=== PATIENT | female | born 1965 | race Caucasian/White ===

== ENCOUNTER 2017-09-18 13:14 | Day surgery (SDC) | payer MEDICARE ==
[2017-09-18] MEDS ORDERED: DIPRIVAN 200 MG/20 ML IV ONE (13:15)
[2017-09-18] MEDS ORDERED: Marcaine 0.5% SDV 10 ML IJ ONE (13:15)
[2017-09-18] MEDS ORDERED: Xylocaine 1% Vial 30 ML PF IJ ONE (13:15)
[2017-09-18] MEDS ORDERED: Lactated Ringers 1,000 ML IV ONE (13:15)
--- NOTE | 2017-09-18 15:04 | OP ---
DATE OF PROCEDURE: 09/18/2017 1351 SURGEON: John Duff D.O. PREOPERATIVE DIAGNOSIS: Degenerative lumbar spine disease, spondylosis, low back pain. POSTOPERATIVE DIAGNOSIS: Degenerative lumbar spine disease, spondylosis, low back pain. PROCEDURE PERFORMED: Left L4-L3 medial branch block under fluoroscopic guidance. DESCRIPTION OF THE PROCEDURE: The patient was taken to the operating room and placed in the prone position on the table. Skin at the injection site was prepped and draped in sterile fashion. Under fluoroscopy, bony anatomy of the targeted injection site was visualized. Induction agent was given as per anesthesia while vital signs were monitored. Local anesthetic agent of 2 cc, 1% Lidocaine was introduced to anesthetize the skin and the subcutaneous tissue through the injection site. Under fluoroscopic guidance, a #20 gauge standard spinal needle was advanced into the target medial branch through the oblique approach. The preservative free 0.5 cc of 1% lidocaine and 0.5 cc of 0.25 - 0.5% Marcaine were injected into each of the targeted medial branch nerve. After the needle was being removed, the skin was cleansed with alcohol and then a bandage was applied. No complications or adverse consequences were observed. The patient was returned to the holding area until stabilized before discharge to home After the patient had been fully recovered from anesthesia, the patient states 100% pain reduction after the procedure. The patient will be followed up within ten days after the injection for re-evaluation.
--- NOTE | 2017-09-18 15:27 | XRAY ---
Indication: Left L3-L4 MBB. Intraoperative fluoroscopy was provided for 36 seconds. 3 digital spot images submitted for interpretation demonstrates posterior spinal needle tips projecting over the left L3 and L4 pedicles. Correlate with intraoperative findings/report.
--- NOTE | 2017-09-18 15:37 | XRAY ---
36 seconds fluoroscopy time in surgery for left L3-4 MBB.
== END 2017-09-18 14:45 | disposition home or self-care (01) ==
LOC: SDC-PAIN 13:14
PROVIDERS: ATTEND Internal Medicine
DX: M47.816 Spondylosis without myelopathy or radiculopathy, lumbar region (principal); M46.96 Unspecified inflammatory spondylopathy, lumbar region; M51.16 Intervertebral disc disorders with radiculopathy, lumbar region; M51.36 Other intervertebral disc degeneration, lumbar region
CPT/HCPCS: 64493; 72020; 77003; J2001; J2704

== ENCOUNTER 2017-10-30 08:55 | Day surgery (SDC) | payer MEDICARE ==
[2017-10-30] MEDS ORDERED: Xylocaine-Mpf 2% 5 Ml Vial IJ ONE (08:56)
[2017-10-30] MEDS ORDERED: Marcaine 0.5% SDV 10 ML IJ ONE (08:56)
[2017-10-30] MEDS ORDERED: Lactated Ringers 1,000 ML IV ONE (08:56)
--- NOTE | 2017-10-31 08:22 | OP ---
DATE OF PROCEDURE: 10/30/2017 1208 SURGEON: John Duff D.O. PREOPERATIVE DIAGNOSIS: Degenerative lumbar spine disease, spondylosis, low back pain. POSTOPERATIVE DIAGNOSIS: Degenerative lumbar spine disease, spondylosis, low back pain. PROCEDURE PERFORMED: Left L4-L3 medial branch block under fluoroscopic guidance. DESCRIPTION OF THE PROCEDURE: The patient was taken to the operating room and placed in the prone position on the table. Skin at the injection site was prepped and draped in sterile fashion. Under fluoroscopy, bony anatomy of the targeted injection site was visualized. Induction agent was given as per anesthesia while vital signs were monitored. Local anesthetic agent of 0.5 cc of 1% lidocaine preservative free was introduced to anesthetize the skin and the subcutaneous tissue through the injection site. Under fluoroscopic guidance, a #20 gauge standard spinal needle was advanced into the target medial branch through the oblique approach. The preservative free 0.5 cc of 1% lidocaine and 0.5 cc of 0.25% Marcaine were injected into each of the targeted medial branch nerve. After the needle was being removed, the skin was cleansed with alcohol and then a bandage was applied. No complications or adverse consequences were observed. The patient was returned to the holding area until stabilized before discharge to home. The self-reported preoperative pain is 8 out of 10 and postoperative pain level is 0 out of 10. The patient will be followed up within ten days after the injection for re-evaluation.
--- NOTE | 2017-11-01 08:18 | XRAY ---
19 seconds fluoroscopy time in surgery for left L3-4 MBB.
--- NOTE | 2017-11-01 08:18 | XRAY ---
Indication: Left L3-L4 MBB. Intraoperative fluoroscopy was provided for 19 seconds. 2 digital spot images submitted for interpretation demonstrates posterior spinal needle tips projecting over the left L3 and L4 pedicles. Correlate with intraoperative findings/report.
== END 2017-10-30 12:57 | disposition home or self-care (01) ==
LOC: SDC-PAIN 08:55
PROVIDERS: ATTEND Internal Medicine
DX: M46.96 Unspecified inflammatory spondylopathy, lumbar region (principal); M51.16 Intervertebral disc disorders with radiculopathy, lumbar region; M51.36 Other intervertebral disc degeneration, lumbar region; Z79.891 Long term (current) use of opiate analgesic
CPT/HCPCS: 64493; 64494; 72020; 77003

== ENCOUNTER 2017-12-04 10:01 | Day surgery (SDC) | payer MEDICARE ==
[2017-12-04] MEDS ORDERED: LIDOCAINE HCL 2% 100 MG/5 ML IJ ONE (10:02)
[2017-12-04] MEDS ORDERED: Lactated Ringers 1,000 ML IV ONE (10:02)
[2017-12-04] MEDS ORDERED: Marcaine 0.5% SDV 10 ML IJ ONE (10:02)
[2017-12-04] MEDS ORDERED: DIPRIVAN 200 MG/20 ML IV ONE (10:02)
[2017-12-04] MEDS ORDERED: Xylocaine-Mpf 2 ML IJ ONE (10:02)
--- NOTE | 2017-12-04 13:32 | XRAY ---
33 seconds fluoroscopy time in surgery for left RFA facet L4-L5.
--- NOTE | 2017-12-04 13:43 | XRAY ---
Indication: Left L4-L5 RFA. Intraoperative fluoroscopy was provided for 33 seconds. 2 digital spot images submitted for interpretation demonstrates 2 posterior spinal needle tips projecting over the left L3 and L4 pedicles. Correlate with intraoperative findings/report.
--- NOTE | 2017-12-05 08:59 | OP ---
DATE OF PROCEDURE: 12/04/2017 1217 SURGEON: John Duff D.O. PREOPERATIVE DIAGNOSES: Degenerative lumbosacral spine disease, spondylosis, low back pain. POSTOPERATIVE DIAGNOSES: Degenerative lumbosacral spine disease, spondylosis, low back pain. PROCEDURE PERFORMED: Left L3, L4 medial branch radiofrequency ablation under fluoroscopic guidance. DESCRIPTION OF PROCEDURE: The patient was taken to the operating room and laid in the prone position on the table. The skin over the injection site was prepped and draped in sterile fashion. Under fluoroscopy bony anatomy of the target injection site was visualized. Induction agent was given as per anesthesia while vital signs were monitored. Local anesthetic agent was introduced to anesthetize the skin and the subcutaneous tissue through the injection site. Under fluoroscopic guidance a standard size spinal needle with cannula was advanced into the target medial branch nerve as per standard protocol. Before the radiofrequency ablation motor and sensory nerve testing was conducted as per protocol. Under the safety guidance which ensured no motor nerves being involved, radiofrequency ablation was conducted at 80 degrees C for 90 seconds as per standard protocol. After the spinal needle with the cannula was removed the skin was cleansed with alcohol and then a bandage was applied. No complications or adverse occurrences were observed. After the procedure there was 100% pain reduction after the procedure. The patient will be followed up within 10 days after the procedure for reevaluation.
== END 2017-12-04 13:15 | disposition home or self-care (01) ==
LOC: SDC-PAIN 10:01
PROVIDERS: ATTEND Internal Medicine
DX: M54.5 Low back pain (principal); M46.96 Unspecified inflammatory spondylopathy, lumbar region; M51.16 Intervertebral disc disorders with radiculopathy, lumbar region; M51.36 Other intervertebral disc degeneration, lumbar region; Z79.891 Long term (current) use of opiate analgesic
CPT/HCPCS: 64635; 64636; 72020; 77003; J2704

== ENCOUNTER 2018-01-08 09:50 | Day surgery (SDC) | payer MEDICARE ==
[2018-01-08] MEDS ORDERED: Marcaine 0.5% SDV 10 ML IJ ONE (09:51)
[2018-01-08] MEDS ORDERED: Xylocaine 1% Vial 30 ML PF IJ ONE (09:51)
[2018-01-08] MEDS ORDERED: Lactated Ringers 1,000 ML IV ONE (12:04)
--- NOTE | 2018-01-08 13:24 | XRAY ---
Indication: Right L4-S1 MBB. Intraoperative fluoroscopy was provided for 34 seconds. 4 digital spot images submitted for interpretation demonstrates 3 posterior spinal needle tips projecting over the expected course of the right L4, L5, and S1 nerve roots. Correlate with intraoperative findings/report.
--- NOTE | 2018-01-08 13:37 | XRAY ---
34 seconds fluoroscopy time in surgery for right L5-S1 MBB.
--- NOTE | 2018-01-09 09:37 | OP ---
DATE OF PROCEDURE: 01/08/2018 1118 SURGEON: John Duff D.O. PREOPERATIVE DIAGNOSIS: Degenerative lumbar spine disease, spondylosis, low back pain. POSTOPERATIVE DIAGNOSIS: Degenerative lumbar spine disease, spondylosis, low back pain. PROCEDURE PERFORMED: Right L5, L4, L3 medial branch block under fluoroscopic guidance. DESCRIPTION OF THE PROCEDURE: The patient was taken to the operating room and placed in the prone position on the table. Skin at the injection site was prepped and draped in sterile fashion. Under fluoroscopy, bony anatomy of the targeted injection site was visualized.. This procedure was done under local anesthesia with 14 cc of 1% lidocaine used. Under fluoroscopic guidance, a #20 gauge standard spinal needle was advanced into the target medial branch through the oblique approach. The medication used for this procedure is preservative-free 0.5 cc of mixed half volume of 1% lidocaine plus half volume of 0.5% Marcaine to each injection site. After the needle was being removed, the skin was cleansed with alcohol and then a bandage was applied. No complications or adverse consequences were observed. The patient was returned to the holding area until stabilized before discharge to home. Preoperative pain level is 10 out of 10 and postoperative pain level is 0 out of 10. The patient will be followed up within ten days after the injection for re-evaluation.
== END 2018-01-08 11:50 | disposition home or self-care (01) ==
LOC: SDC-PAIN 09:50
PROVIDERS: ATTEND Internal Medicine
DX: M54.5 Low back pain (principal); M46.96 Unspecified inflammatory spondylopathy, lumbar region; M51.16 Intervertebral disc disorders with radiculopathy, lumbar region; M51.36 Other intervertebral disc degeneration, lumbar region; Z79.891 Long term (current) use of opiate analgesic
CPT/HCPCS: 64493; 64494; 64495; 72020; 77003; J2001

== ENCOUNTER 2019-02-11 11:50 | Day surgery (SDC) | payer MEDICARE ==
[2019-02-11] MEDS ORDERED: Depo-Medrol 40 MG/ML IM ONE (11:51)
[2019-02-11] MEDS ORDERED: Xylocaine-Mpf 2% 5 Ml Vial IJ ONE (11:51)
[2019-02-11] MEDS ORDERED: Ketamine HCl 50 MG/ML ONE (12:58)
[2019-02-11] MEDS ORDERED: DIPRIVAN 200 MG/20 ML IV ONE (12:58)
[2019-02-11] MEDS ORDERED: Lactated Ringers 1,000 ML IV ONE (13:28)
--- NOTE | 2019-02-11 14:44 | XRAY ---
Indication: Bilateral L4-S1 MBB. Intraoperative fluoroscopy was provided for 12 seconds. Single digital spot image submitted for interpretation demonstrates posterior needle tips projecting over the expected course of the left and right L4-S1 nerve roots. Correlate with intraoperative findings/report.
--- NOTE | 2019-02-11 14:46 | XRAY ---
12 seconds fluoroscopy time in surgery for bilateral L4-S1 MBB.
== END 2019-02-11 13:27 | disposition home or self-care (01) ==
LOC: SDC-PAIN 11:50
PROVIDERS: ATTEND Psychiatry & Neurology Pain Medicine
DX: M47.816 Spondylosis without myelopathy or radiculopathy, lumbar region (principal); I10 Essential (primary) hypertension; J44.9 Chronic obstructive pulmonary disease, unspecified; E78.00 Pure hypercholesterolemia, unspecified; F32.9 Major depressive disorder, single episode, unspecified
CPT/HCPCS: 64493; 64494; 72020; 77002; J1030; J2704

== ENCOUNTER 2019-04-15 11:54 | Day surgery (SDC) | payer MEDICARE ==
[2019-04-15] MEDS ORDERED: Marcaine 0.5% SDV 10 ML IJ ONE (11:55)
[2019-04-15] MEDS ORDERED: Depo-Medrol 40 MG/ML IM ONE (11:55)
[2019-04-15] MEDS ORDERED: DIPRIVAN 200 MG/20 ML IV ONE (12:46)
[2019-04-15] MEDS ORDERED: Ketamine HCl 50 MG/ML ONE (12:46)
[2019-04-15] MEDS ORDERED: Lactated Ringers 1,000 ML IV ONE (13:22)
--- NOTE | 2019-04-15 13:26 | XRAY ---
Indication: Bilateral L4-S1 MBB. Intraoperative fluoroscopy was provided for 9 seconds. Single digital spot image submitted for interpretation demonstrates posterior needle tips projecting over the expected course of the left and right L4-S1 nerve roots. Correlate with intraoperative findings/report.
--- NOTE | 2019-04-15 13:36 | XRAY ---
9 seconds of fluoroscopy was used in surgery bilateral L4-L5 and L5-S1 MBB.
== END 2019-04-15 13:23 | disposition home or self-care (01) ==
LOC: SDC-PAIN 11:54
PROVIDERS: ATTEND Psychiatry & Neurology Pain Medicine
DX: M47.816 Spondylosis without myelopathy or radiculopathy, lumbar region (principal); I10 Essential (primary) hypertension; J45.909 Unspecified asthma, uncomplicated; J44.9 Chronic obstructive pulmonary disease, unspecified; E78.00 Pure hypercholesterolemia, unspecified; Z79.899 Other long term (current) drug therapy
CPT/HCPCS: 64493; 64494; 72020; 77002; J1030; J2704

== ENCOUNTER 2019-05-20 13:56 | Day surgery (SDC) | payer MEDICARE ==
[2019-05-20] MEDS ORDERED: Xylocaine 1% Vial 30 ML PF IJ ONE (13:57)
[2019-05-20] MEDS ORDERED: Marcaine 0.5% SDV 10 ML IJ ONE (13:57)
[2019-05-20] MEDS ORDERED: Depo-Medrol 40 MG/ML IM ONE (13:57)
[2019-05-20] MEDS ORDERED: Lactated Ringers 1,000 ML IV ONE (14:50)
[2019-05-20] MEDS ORDERED: DIPRIVAN 200 MG/20 ML IV ONE (14:51)
[2019-05-20] MEDS ORDERED: Ketamine HCl 50 MG/ML ONE (14:51)
--- NOTE | 2019-05-20 16:22 | XRAY ---
Indication: Right L4-S1 RFA. Intraoperative fluoroscopy was provided for 13 seconds. 3 digital spot images submitted for interpretation demonstrates posterior needle tips projecting over the expected course of the right L4-S1 nerve roots. Correlate with intraoperative findings/report.
--- NOTE | 2019-05-20 16:25 | XRAY ---
13 seconds of fluoroscopy was used in surgery for a right L4-L5, L5-S1 RFA.
== END 2019-05-20 15:33 ==
LOC: SDC-PAIN 13:56
PROVIDERS: ATTEND Psychiatry & Neurology Pain Medicine
DX: M47.816 Spondylosis without myelopathy or radiculopathy, lumbar region (principal); J44.9 Chronic obstructive pulmonary disease, unspecified; I10 Essential (primary) hypertension; E78.00 Pure hypercholesterolemia, unspecified; Z79.899 Other long term (current) drug therapy
CPT/HCPCS: 64493; 64494; 72100; 77002; J1030; J2001; J2704

== ENCOUNTER 2019-07-15 10:37 | Day surgery (SDC) | payer MEDICARE ==
[2019-07-15] MEDS ORDERED: Depo-Medrol 40 MG/ML IM ONE (10:38)
[2019-07-15] MEDS ORDERED: Xylocaine 1% Vial 30 ML PF IJ ONE (10:38)
[2019-07-15] MEDS ORDERED: Marcaine 0.5% SDV 10 ML IJ ONE (10:38)
[2019-07-15] MEDS ORDERED: Ketamine HCl 50 MG/ML ONE (11:41)
[2019-07-15] MEDS ORDERED: DIPRIVAN 200 MG/20 ML IV ONE (11:41)
--- NOTE | 2019-07-15 12:12 | XRAY ---
Indication: Left L4-S1 RFA. Intraoperative fluoroscopy was provided for 15 seconds. 2 digital spot images submitted for interpretation demonstrates posterior needle tips projecting over the expected course of the left L4-S1 nerve roots. Correlate with intraoperative findings/report.
--- NOTE | 2019-07-15 12:38 | XRAY ---
15 seconds fluoroscopy time in surgery for left L4-S1 RFA.
[2019-07-15] MEDS ORDERED: Lactated Ringers 1,000 ML IV ONE (15:17)
== END 2019-07-15 12:16 | disposition home or self-care (01) ==
LOC: SDC-PAIN 10:37
PROVIDERS: ATTEND Psychiatry & Neurology Pain Medicine
DX: M47.816 Spondylosis without myelopathy or radiculopathy, lumbar region (principal); I10 Essential (primary) hypertension; J44.9 Chronic obstructive pulmonary disease, unspecified; E78.00 Pure hypercholesterolemia, unspecified; Z79.899 Other long term (current) drug therapy
CPT/HCPCS: 64635; 64636; 72100; 77002; J1030; J2001; J2704